=== PATIENT | male | born 1940 | race Caucasian/White ===

== ENCOUNTER → 2020-08-12 | Outpatient (CLI) | payer MEDICARE | END | disposition home or self-care (01) | LOC: STAR 15:43 | PROVIDERS: ATTEND Otolaryngology | DX: Z20.828 Contact with and (suspected) exposure to other viral communicable diseases (principal) | CPT/HCPCS: 87635 ==

== ENCOUNTER 2020-08-18 06:04 | Day surgery (SDC) | payer MEDICARE ==
[~2020-08-18] VITALS: Ht 172.7 cm; Wt 77.0 kg
[2020-08-18 06:42] VITALS: BP 142/79
[2020-08-18] MEDS ORDERED: BACITRACIN 50,000 UNIT ONE (06:57)
[2020-08-18] MEDS ORDERED: EPINEPHRINE 1 MG/ML, 1ML ONE (06:57)
[2020-08-18] MEDS ORDERED: LIDOCAINE/PF 1%, 30ML ONE (06:57)
[2020-08-18] MEDS ORDERED: FLUORESCEIN SODIUM 500 MG/5 ML ONE (06:57)
[2020-08-18] MEDS ORDERED: EPINEPHRINE TOPICAL SOLN 1 MG/ML, 30ML ONE (06:57)
[2020-08-18] MEDS ORDERED: BACITRACIN OINT 500U/GM, 15 GM ONE (06:57)
[2020-08-18] MEDS ORDERED: CHLORHEXIDINE 15 ML UDC MM ONE (07:00)
[2020-08-18] MEDS ORDERED: PLEASE ENTER ALLERGIES MC SCH (07:00)
[2020-08-18] MEDS ORDERED: LACTATED RINGERS 1,000 ML IV SCH (07:00)
[2020-08-18 07:37] LABS: ALANINE AMINOTRANSFERASE 27 U/L (12-78); ALBUMIN 3.5 g/dL (3.4-5.0); ANION GAP 8 mmol/L (5-15); CALCIUM 9.7 mg/dL (8.5-10.1); CHLORIDE 107 mmol/L (98-107); CREATININE 1.31 mg/dL (0.7-1.3)
[2020-08-18 07:39] LABS: ALKALINE PHOSPHATASE 47 U/L (45-117); BILIRUBIN,TOTAL 0.5 mg/dL (0.2-1.0); TOTAL PROTEIN 7.1 g/dL (6.4-8.2)
[2020-08-18] MEDS ORDERED: FENTANYL PF 100 MCG/2ML ONE (07:42)
[2020-08-18] MEDS ORDERED: LEVO100T5 PO (07:54)
[2020-08-18] MEDS ORDERED: CALC-126 PO (07:54)
[2020-08-18] MEDS ORDERED: ALLO100T30 PO (07:54)
[2020-08-18] MEDS ORDERED: LORA10TA72 PO (07:54)
[2020-08-18] MEDS ORDERED: FLUT1DIS3 INH (07:54)
[2020-08-18] MEDS ORDERED: HYDR12.517 PO (07:54)
[2020-08-18] MEDS ORDERED: CHOL200040 PO (07:54)
[2020-08-18] MEDS ORDERED: ACET-1600 PO (07:54)
[2020-08-18] MEDS ORDERED: LOVA40TA2 PO (07:54)
[2020-08-18] MEDS ORDERED: B 12 PO (07:54)
[2020-08-18] MEDS ORDERED: ENAL5TAB10 PO (07:54)
[2020-08-18] MEDS ORDERED: TAMS-11 PO (07:54)
[2020-08-18] MEDS ORDERED: ASPI81TA45 PO (07:54)
[2020-08-18] MEDS ORDERED: COMBIVENT INH (07:54)
[2020-08-18] MEDS ORDERED: HALOPERIDOL 5 MG/ML IV PRN (08:00)
[2020-08-18] MEDS ORDERED: OXYcodone 5 MG/5 ML ORAL.SOL UDC PO PRN (08:00)
[2020-08-18] MEDS ORDERED: DIPHENHYDRAMINE 50 MG/ML, 1ML IVPush PRN (08:00)
[2020-08-18] MEDS ORDERED: PROMETHAZINE 25 MG/ML, 1ML IVPush PRN (08:00)
[2020-08-18] MEDS ORDERED: LABETALOL 5MG/ML, 20ML IV PRN (08:00)
[2020-08-18] MEDS ORDERED: MEPERIDINE/PF 25MG/0.5ML IVPush PRN (08:00)
[2020-08-18] MEDS ORDERED: FENTANYL PF 100 MCG/2ML IV PRN (08:00)
[2020-08-18] MEDS ORDERED: HYDROmorphone 1 MG/ML, 1ML INJ IVPush PRN (08:00)
[2020-08-18] MEDS ORDERED: hydrALAzine 20 MG/ML, 1ML IV PRN (08:00)
[2020-08-18] MEDS ORDERED: EPHEDRINE 50 MG/ML, 1ML ONE (08:12)
[2020-08-18] MEDS ORDERED: PHENYLEPHRINE 10 MG/ML ONE (08:12)
[2020-08-18] MEDS ORDERED: EPINEPHRINE TOPICAL SOLN 1 MG/ML, 30ML TP ONE (08:33)
[2020-08-18] MEDS ORDERED: FLUORESCEIN SODIUM 500 MG/5 ML IV ONE (08:33)
[2020-08-18] MEDS ORDERED: LIDOCAINE 1%-EPI 1:100K, 30ML INFIL ONE (08:33)
[2020-08-18] MEDS ORDERED: GLYCOPYRROLATE 0.2MG/1ML, 5ML ONE (08:44)
[2020-08-18] MEDS ORDERED: PROPOFOL 10 MG/ML, 20ML ONE (08:44)
[2020-08-18] MEDS ORDERED: SUCCINYLCHOLINE 20 MG/ML, 10ML ONE (08:44)
[2020-08-18] MEDS ORDERED: ROCURONIUM 10MG/ML,5ML ONE (08:44)
[2020-08-18] MEDS ORDERED: NEOSTIGMINE 1 MG/ML, 10ML ONE (08:44)
[2020-08-18] MEDS ORDERED: CEFAZOLIN 1,000 MG ONE (08:44)
[2020-08-18] MEDS ORDERED: ONDANSETRON 2MG/ML, 2ML ONE (08:44)
[2020-08-18] MEDS ORDERED: DEXAMETHASONE 4 MG/ML, 1ML ONE (08:44)
== END 2020-08-18 10:25 | disposition home or self-care (01) ==
LOC: OUT 06:04
PROVIDERS: ATTEND Otolaryngology
DX: R04.0 Epistaxis (principal); J31.0 Chronic rhinitis; J34.89 Other specified disorders of nose and nasal sinuses; J44.9 Chronic obstructive pulmonary disease, unspecified; I10 Essential (primary) hypertension; E03.9 Hypothyroidism, unspecified; Z79.82 Long term (current) use of aspirin; Z79.890 Hormone replacement therapy; Z79.899 Other long term (current) drug therapy; Z95.0 Presence of cardiac pacemaker; Z96.652 Presence of left artificial knee joint; Z83.3 Family history of diabetes mellitus; Z82.49 Family history of ischemic heart disease and other diseases of the circulatory system
CPT/HCPCS: 31238; 36415; 80053; 88304; 93005; J0171; J0330; J0690; J1100; J2370; J2405; J2704; J3010; J7120; J2710